=== PATIENT | female | born 1980 | race Hispanic/Latino ===

== ENCOUNTER 2019-04-22 03:03 | Emergency (ER) | payer OTHER ==
[2019-04-22] MEDS ORDERED: ALBUTEROL SULFATE 0.083% 2.5 MG/3 ML INH IH ONE (03:30)
== END 2019-04-22 04:59 | disposition home or self-care (01) ==
LOC: EDH 03:03
DX: J20.9 Acute bronchitis, unspecified (principal); F41.9 Anxiety disorder, unspecified; E11.9 Type 2 diabetes mellitus without complications; Z88.5 Allergy status to narcotic agent; Z90.710 Acquired absence of both cervix and uterus
CPT/HCPCS: 71046; 94640; 96372

== ENCOUNTER 2019-05-07 01:42 | Emergency (ER) | payer SELFPAY ==
[2019-05-07] MEDS ORDERED: ONDANSETRON HCL 4 MG/2 ML VIAL ONE (02:04)
[2019-05-07] MEDS ORDERED: HYDROCODONE/ACETAMINOPHEN 10/325 MG TAB ONE ×2 (02:05→02:16)
[2019-05-07] MEDS ORDERED: KETOROLAC TROMETHAMINE 30MG/ML ONE (02:05)
[2019-05-07] MEDS ORDERED: SODIUM CHLORIDE 0.9% 1000ML 1,000 ML IV ONE (02:06)
[2019-05-07 02:07] LABS: BASOPHILS % (AUTO) 0.9 % (0.0-5.0); EOSINOPHILS % (AUTO) 0.5 % (0.0-8.0); HEMATOCRIT 32.2 % (36-48); LYMPHOCYTES % (AUTO) 20.5 % (21.0-51.0); MEAN CORPUSCULAR HEMOGLOBIN 27.8 pg (27.0-33.0); MEAN CORPUSCULAR HGB CONC 33.3 g/dL (32.0-36.0); MEAN CORPUSCULAR VOLUME 83.5 fL (79-99); MONOCYTES % (AUTO) 5.5 % (3.0-13.0); NEUTROPHILS % (AUTO) 72.6 % (40.0-77.0); PLATELET COUNT (AUTO) 262 K/uL (130-400); RED BLOOD CELL COUNT(AUTO) 3.86 MIL/uL (4.00-5.50); RED CELL DISTRIBUTION WIDTH 17.2 % (11.0-15.5); WHITE BLOOD COUNT (AUTO) 8.5 K/uL (4.8-10.8)
[2019-05-07 02:27] LABS: CREATININE 0.8 mg/dL (0.5-1.5); POTASSIUM 3.1 mmol/L (3.5-5.1)
[2019-05-07 02:34] LABS: ALBUMIN 2.9 g/dL (3.5-5.0); BILIRUBIN,TOTAL 0.2 mg/dL (0.2-1.0); TOTAL PROTEIN, SERUM 6.8 g/dL (6.0-8.3)
== END 2019-05-07 03:26 | disposition home or self-care (01) ==
LOC: EDH 01:42
DX: K80.20 Calculus of gallbladder without cholecystitis without obstruction (principal); R11.2 Nausea with vomiting, unspecified; E11.9 Type 2 diabetes mellitus without complications; F41.9 Anxiety disorder, unspecified; Z88.6 Allergy status to analgesic agent
CPT/HCPCS: 36415; 76705; 80053; 83690; 85025; 96361; 96374; 96375; 99285; J1885; J2405; J7030

== ENCOUNTER 2020-07-10 22:37 | Emergency (ER) | payer OTHER ==
[2020-07-10] MEDS ORDERED: ONDANSETRON HCL 4 MG/2 ML VIAL ONE (22:57)
[2020-07-10] MEDS ORDERED: KETOROLAC TROMETHAMINE 30MG/ML ONE (22:57)
[2020-07-10] MEDS ORDERED: METOCLOPRAMIDE 10 MG/2 ML VIAL ONE (22:57)
[2020-07-10] MEDS ORDERED: PANTOPRAZOLE 40 MG/VIAL ONE (22:57)
[2020-07-10] MEDS ORDERED: FAMOTIDINE/PF 20 MG/2 ML VIAL IV ONE (22:58)
[2020-07-10 23:06] LABS: APPEARANCE,URINE Turbid (CLEAR); BILIRUBIN,URINE Negative (NEGATIVE); COLOR,URINE Yellow (YELLOW); GLUCOSE, URINE (UA) Negative (NEGATIVE); KETONES,URINE Negative (NEGATIVE); LEUKOCYTE ESTERASE ,URINE Moderate (NEGATIVE); NITRATE,URINE Negative (NEGATIVE); OCCULT BLOOD,URINE Negative (NEGATIVE); PROTEIN,URINE Negative (NEGATIVE)
[2020-07-10 23:19] LABS: BASOPHILS % (AUTO) 0.5 % (0.0-5.0); EOSINOPHILS % (AUTO) 0.3 % (0.0-8.0); HEMATOCRIT 35.1 % (36-48); LYMPHOCYTES % (AUTO) 31.3 % (21.0-51.0); MEAN CORPUSCULAR HEMOGLOBIN 26.7 pg (27.0-33.0); MEAN CORPUSCULAR HGB CONC 32.8 g/dL (32.0-36.0); MEAN CORPUSCULAR VOLUME 81.4 fL (79-99); MONOCYTES % (AUTO) 6.3 % (3.0-13.0); NEUTROPHILS % (AUTO) 61.2 % (40.0-77.0); PLATELET COUNT (AUTO) 320 K/uL (130-400); RED BLOOD CELL COUNT(AUTO) 4.31 MIL/uL (4.00-5.50); RED CELL DISTRIBUTION WIDTH 14.2 % (11.0-15.5); WHITE BLOOD COUNT (AUTO) 7.5 K/uL (4.8-10.8)
[2020-07-10 23:25] LABS: AMORPHOUS SEDIMENT,UR Many /LPF (None Seen); BACTERIA,URINE Few /HPF (None Seen); RBC,URINE 0-1 /HPF (0-1); SQUAMOUS EPITHELIAL CELL,UR Few /HPF (0-2)
[2020-07-10 23:32] LABS: CREATININE 0.9 mg/dL (0.5-1.5); POTASSIUM 3.3 mmol/L (3.5-5.1)
[2020-07-10 23:36] LABS: ALBUMIN 3.3 g/dL (3.5-5.0); BILIRUBIN,TOTAL 0.2 mg/dL (0.2-1.0)
[2020-07-11] MEDS ORDERED: DiphenhydrAMINE HCL 50 MG/ML VIAL ONE (00:16)
[2020-07-11] MEDS ORDERED: MAG HYDROX/AL HYDROX/SIMETH ES 30 ML SUSP UDCUP ONE (01:57)
[2020-07-11] MEDS ORDERED: LIDOCAINE HCL 2% VISCOUS 15 ML UDCUP ONE (01:57)
== END 2020-07-11 02:22 | disposition home or self-care (01) ==
LOC: EDH 22:37
DX: K80.20 Calculus of gallbladder without cholecystitis without obstruction (principal); E86.0 Dehydration; E11.9 Type 2 diabetes mellitus without complications; I10 Essential (primary) hypertension; Z88.6 Allergy status to analgesic agent; Z90.710 Acquired absence of both cervix and uterus
CPT/HCPCS: 36415; 76705; 80053; 81001; 83605; 83690; 84484; 85025; 87088; 93005; 96374; 96375 ×2; 99285; C9113; J1200; J1885; J2405; J2765; J3490

== ENCOUNTER 2020-12-07 21:25 | Emergency (ER) | payer OTHER ==
[2020-12-07] MEDS ORDERED: LIDOCAINE HCL 2% VISCOUS 15 ML UDCUP ONE (22:22)
[2020-12-07] MEDS ORDERED: MAG HYDROX/AL HYDROX/SIMETH ES 30 ML SUSP UDCUP ONE (22:22)
[2020-12-07] MEDS ORDERED: FAMOTIDINE 20MG TAB 20 MG TAB ONE (22:23)
[2020-12-07 22:25] LABS: BASOPHILS % (AUTO) 0.5 % (0.0-5.0); EOSINOPHILS % (AUTO) 0.6 % (0.0-8.0); HEMATOCRIT 35.2 % (36-48); LYMPHOCYTES % (AUTO) 25.4 % (21.0-51.0); MEAN CORPUSCULAR HEMOGLOBIN 26.5 pg (27.0-33.0); MEAN CORPUSCULAR HGB CONC 32.1 g/dL (32.0-36.0); MEAN CORPUSCULAR VOLUME 82.4 fL (79-99); MONOCYTES % (AUTO) 7.5 % (3.0-13.0); NEUTROPHILS % (AUTO) 65.6 % (40.0-77.0); PLATELET COUNT (AUTO) 334 K/uL (130-400); RED BLOOD CELL COUNT(AUTO) 4.27 MIL/uL (4.00-5.50); RED CELL DISTRIBUTION WIDTH 13.7 % (11.0-15.5); WHITE BLOOD COUNT (AUTO) 9.3 K/uL (4.8-10.8)
[2020-12-07 22:31] LABS: APPEARANCE,URINE Clear (CLEAR); BILIRUBIN,URINE Negative (NEGATIVE); COLOR,URINE Yellow (YELLOW); GLUCOSE, URINE (UA) Negative (NEGATIVE); KETONES,URINE Trace mg/dL (NEGATIVE); LEUKOCYTE ESTERASE ,URINE Moderate (NEGATIVE); NITRATE,URINE Negative (NEGATIVE); OCCULT BLOOD,URINE Negative (NEGATIVE); PH,URINE 6.5 (5.0-8.0); PROTEIN,URINE Negative (NEGATIVE)
[2020-12-07 22:32] LABS: HCG,QUAL RESULT NEGATIVE (NEGATIVE)
[2020-12-07 22:36] LABS: AMORPHOUS SEDIMENT,UR Rare /LPF (None Seen); BACTERIA,URINE Rare /HPF (None Seen); CALCIUM OXALATE CRYSTALS,UR Few /LPF (None Seen); RBC,URINE 0-1 /HPF (0-1); SQUAMOUS EPITHELIAL CELL,UR Rare /HPF (0-2)
[2020-12-07 22:39] LABS: BILIRUBIN,TOTAL 0.2 mg/dL (0.2-1.0); POTASSIUM 3.5 mmol/L (3.5-5.1)
[2020-12-07 23:05] LABS: ALBUMIN 3.1 g/dL (3.5-5.0); CREATININE 0.9 mg/dL (0.5-1.5)
[2020-12-07] MEDS ORDERED: KETOROLAC TROMETHAMINE 60 MG/2 ML VIAL ONE (23:12)
[2020-12-07] MEDS ORDERED: CEFTRIAXONE SODIUM 1 GM ONE (23:12)
[2020-12-07] MEDS ORDERED: LIDOCAINE HCL-MPF 1% 2ML VIAL ONE (23:13)
== END 2020-12-07 23:45 | disposition home or self-care (01) ==
LOC: EDH 21:25
DX: K29.00 Acute gastritis without bleeding (principal); E11.9 Type 2 diabetes mellitus without complications; F41.9 Anxiety disorder, unspecified; Z88.6 Allergy status to analgesic agent; Z79.84 Long term (current) use of oral hypoglycemic drugs
CPT/HCPCS: 36415; 71045; 80053; 81001; 81025; 83690; 84484; 85025; 87088; 93005; 96372 ×2; 99285; J0696; J1885; J3490

== ENCOUNTER 2021-09-21 00:43 | Emergency (ER) | payer OTHER ==
[~2021-09-21] VITALS: Ht 160 cm; Wt 80.7 kg
[~2021-09-21 00:43] MED LIST: DICY20TA2 PO; METO-296 PO; ONDA4TAB10 PO; PANT40TA PO
[2021-09-21 00:57] LABS: BASOPHILS % (AUTO) 0.5 % (0.0-5.0); EOSINOPHILS % (AUTO) 0.3 % (0.0-8.0); LYMPHOCYTES % (AUTO) 32.8 % (21.0-51.0); MEAN CORPUSCULAR HEMOGLOBIN 24.8 pg (27.0-33.0); MEAN CORPUSCULAR HGB CONC 30.6 g/dL (32.0-36.0); MONOCYTES % (AUTO) 6.5 % (3.0-13.0); NEUTROPHILS % (AUTO) 59.6 % (40.0-77.0); PLATELET COUNT (AUTO) 271 K/uL (130-400); RED CELL DISTRIBUTION WIDTH 15.2 % (11.0-15.5); WHITE BLOOD COUNT (AUTO) 6.3 K/uL (4.8-10.8)
[2021-09-21 01:07] LABS: POTASSIUM 3.7 mmol/L (3.5-5.1)
[2021-09-21 01:11] LABS: ALBUMIN 3.2 g/dL (3.5-5.0); BILIRUBIN,TOTAL 0.2 mg/dL (0.2-1.0); TOTAL PROTEIN, SERUM 6.9 g/dL (6.0-8.3)
[2021-09-21 01:35] LABS: APPEARANCE,URINE CLEAR (CLEAR); BILIRUBIN,URINE NEGATIVE (NEGATIVE); COLOR,URINE YELLOW (YELLOW); GLUCOSE, URINE (UA) NEGATIVE (NEGATIVE); KETONES,URINE NEGATIVE (NEGATIVE); LEUKOCYTE ESTERASE ,URINE SMALL (NEGATIVE); NITRATE,URINE NEGATIVE (NEGATIVE); OCCULT BLOOD,URINE NEGATIVE (NEGATIVE); PROTEIN,URINE NEGATIVE (NEGATIVE); UROBILINOGEN,URINE 0.2 mg/dL (0.2-1.0)
[2021-09-21 01:37] LABS: HCG,QUAL RESULT NEGATIVE (NEGATIVE)
[2021-09-21 01:55] LABS: BACTERIA,URINE Few /HPF (None Seen); RBC,URINE 0-1 /HPF (0-1)
[2021-09-21] MEDS ORDERED: KETOROLAC 30MG VIAL (30MG/ML) IV ONE (02:00)
[2021-09-21] MEDS ORDERED: HYOS-14 PO (03:20)
[2021-09-21] MEDS ORDERED: CIPR500S5 PO (03:20)
[2021-09-21] MEDS ORDERED: PROM25TA7 PO (03:20)
[2021-09-21] MEDS ORDERED: IBUP-2070 PO (03:20)
[2021-09-21] MEDS ORDERED: CIPROFLOXACIN HCL 500 MG TABLET PO SCH (03:30)
[2021-09-21] MEDS ORDERED: LEVOFLOXACIN 500 MG TABLET ONE (03:44)
[2021-09-21 03:47] VITALS: BP 110/77
== END 2021-09-21 03:54 | disposition home or self-care (01) ==
LOC: EDH 00:47
DX: N30.00 Acute cystitis without hematuria (principal); R03.0 Elevated blood-pressure reading, without diagnosis of hypertension; R10.11 Right upper quadrant pain; Z79.1 Long term (current) use of non-steroidal anti-inflammatories (NSAID); Z88.5 Allergy status to narcotic agent
CPT/HCPCS: 36415; 80053; 81001; 81025; 83690; 85025; 87088; 93005; 96374; 99284; J1885

== ENCOUNTER 2022-01-19 06:54 | Emergency (ER) | payer OTHER ==
[~2022-01-19] VITALS: Ht 160 cm; Wt 80.7 kg
[~2022-01-19 06:54] MED LIST changes: +CIPR500S5 PO; +HYOS-14 PO; +IBUP-2070 PO; +PROM25TA7 PO
[2022-01-19] MEDS ORDERED: ONDANSETRON 4MG INJ IVP ONE (07:30)
[2022-01-19] MEDS ORDERED: FAMOTIDINE 20MG VIAL IV ONE (07:30)
[2022-01-19 07:38] LABS: BASOPHILS % (AUTO) 0.4 % (0.0-5.0); EOSINOPHILS % (AUTO) 0.2 % (0.0-8.0); HEMATOCRIT 32.6 % (36-48); LYMPHOCYTES % (AUTO) 26.2 % (21.0-51.0); MEAN CORPUSCULAR HEMOGLOBIN 24.2 pg (27.0-33.0); MEAN CORPUSCULAR HGB CONC 30.7 g/dL (32.0-36.0); MEAN CORPUSCULAR VOLUME 78.9 fL (79-99); PLATELET COUNT (AUTO) 249 K/uL (130-400); RED BLOOD CELL COUNT(AUTO) 4.13 MIL/uL (4.00-5.50); WHITE BLOOD COUNT (AUTO) 5.1 K/uL (4.8-10.8)
[2022-01-19 07:45] LABS: CREATININE 0.7 mg/dL (0.5-1.5); POTASSIUM 3.7 mmol/L (3.5-5.1)
[2022-01-19 07:50] LABS: ALBUMIN 3.2 g/dL (3.5-5.0); BILIRUBIN,TOTAL 0.2 mg/dL (0.2-1.0); TOTAL PROTEIN, SERUM 6.9 g/dL (6.0-8.3)
[2022-01-19] MEDS ORDERED: KETOROLAC 30MG VIAL (30MG/ML) IVP ONE (08:00)
[2022-01-19] MEDS ORDERED: KETOROLAC 30MG VIAL (30MG/ML) ONE (08:03)
[2022-01-19 09:04] VITALS: BP 134/76
[2022-01-19 10:15] LABS: APPEARANCE,URINE CLEAR (CLEAR); BILIRUBIN,URINE NEGATIVE (NEGATIVE); COLOR,URINE YELLOW (YELLOW); GLUCOSE, URINE (UA) NEGATIVE (NEGATIVE); KETONES,URINE NEGATIVE (NEGATIVE); LEUKOCYTE ESTERASE ,URINE SMALL (NEGATIVE); NITRATE,URINE NEGATIVE (NEGATIVE); OCCULT BLOOD,URINE NEGATIVE (NEGATIVE); PH,URINE 6.5 (5.0-8.0); PROTEIN,URINE NEGATIVE (NEGATIVE); UROBILINOGEN,URINE 0.2 mg/dL (0.2-1.0)
[2022-01-19 10:19] LABS: HCG,QUAL RESULT NEGATIVE (NEGATIVE)
[2022-01-19 10:40] LABS: BACTERIA,URINE Few /HPF (None Seen); RBC,URINE 0-1 /HPF (0-1)
[2022-01-19] MEDS ORDERED: ONDA4TAB10 PO (12:13)
[2022-01-19] MEDS ORDERED: FAMO-136 PO (12:13)
[2022-01-19] MEDS ORDERED: DIPH25 PO (12:13)
== END 2022-01-19 12:27 | disposition home or self-care (01) ==
LOC: EDH 06:54
DX: R10.11 Right upper quadrant pain (principal); Z88.6 Allergy status to analgesic agent; Z88.5 Allergy status to narcotic agent; Z79.899 Other long term (current) drug therapy; Z98.890 Other specified postprocedural states
CPT/HCPCS: 36415; 80053; 81001; 81025; 83690; 85025; 96374; 96375; 99284; J1885; J2405; J3490

== ENCOUNTER 2022-07-20 00:13 | Emergency (ER) | payer OTHER ==
[~2022-07-20] VITALS: Ht 160 cm; Wt 83.5 kg
[~2022-07-20 00:13] MED LIST changes: +DIPH25 PO; +FAMO-136 PO
[2022-07-20] MEDS ORDERED: ONDANSETRON 4MG INJ IVP ONE (01:00)
[2022-07-20] MEDS ORDERED: HYDROMORPHONE 0.5 MG SYG (0.5MG/0.5ML) IVP ONE (01:00)
[2022-07-20] MEDS ORDERED: 0.9%NACL 1000ML 1,000 ML IV ONE (01:00)
[2022-07-20 01:12] LABS: BASOPHILS % (AUTO) 0.4 % (0.0-5.0); EOSINOPHILS % (AUTO) 0.7 % (0.0-8.0); HEMATOCRIT 34.4 % (36-48); LYMPHOCYTES % (AUTO) 16.3 % (21.0-51.0); MEAN CORPUSCULAR HEMOGLOBIN 26.1 pg (27.0-33.0); MEAN CORPUSCULAR HGB CONC 31.7 g/dL (32.0-36.0); MEAN CORPUSCULAR VOLUME 82.5 fL (79-99); MONOCYTES % (AUTO) 6.8 % (3.0-13.0); NEUTROPHILS % (AUTO) 75.5 % (40.0-77.0); PLATELET COUNT (AUTO) 340 K/uL (130-400); RED BLOOD CELL COUNT(AUTO) 4.17 MIL/uL (4.00-5.50); RED CELL DISTRIBUTION WIDTH 14.8 % (11.0-15.5); WHITE BLOOD COUNT (AUTO) 9.2 K/uL (4.8-10.8)
[2022-07-20 01:19] LABS: CREATININE 0.8 mg/dL (0.5-1.5); POTASSIUM 3.6 mmol/L (3.5-5.1)
[2022-07-20 01:24] LABS: ALBUMIN 3.2 g/dL (3.5-5.0); TOTAL PROTEIN, SERUM 6.9 g/dL (6.0-8.3)
[2022-07-20] MEDS ORDERED: ONDA-104 PO (02:16)
[2022-07-20] MEDS ORDERED: OMEP40CA21 PO (02:16)
[2022-07-20] MEDS ORDERED: IBUP-1493 PO (02:16)
[2022-07-20 02:25] VITALS: BP 127/84
== END 2022-07-20 02:26 | disposition home or self-care (01) ==
LOC: EDH 00:13
DX: K80.20 Calculus of gallbladder without cholecystitis without obstruction (principal); E11.9 Type 2 diabetes mellitus without complications; Z79.1 Long term (current) use of non-steroidal anti-inflammatories (NSAID); Z79.899 Other long term (current) drug therapy; Z88.5 Allergy status to narcotic agent
CPT/HCPCS: 99284; 96374; 76705; 96361; 96375; 84484; 80053; 85025; 36415; J7030; J2405; J1170

== ENCOUNTER 2022-10-05 19:47 | Emergency (ER) | payer OTHER ==
[~2022-10-05] VITALS: Ht 160 cm; Wt 78.6 kg
[~2022-10-05 19:47] MED LIST changes: -CIPR500S5 PO; -DICY20TA2 PO; -DIPH25 PO; -FAMO-136 PO; -HYOS-14 PO; +IBUP-1493 PO; -IBUP-2070 PO; -METO-296 PO; +OMEP40CA21 PO; +ONDA-104 PO; -ONDA4TAB10 PO; -PANT40TA PO; -PROM25TA7 PO
[2022-10-05 20:15] LABS: BASOPHILS % (AUTO) 0.7 % (0.0-5.0); EOSINOPHILS % (AUTO) 0.8 % (0.0-8.0); HEMATOCRIT 34.7 % (36-48); LYMPHOCYTES % (AUTO) 30.7 % (21.0-51.0); MEAN CORPUSCULAR HEMOGLOBIN 25.3 pg (27.0-33.0); MEAN CORPUSCULAR HGB CONC 31.4 g/dL (32.0-36.0); MEAN CORPUSCULAR VOLUME 80.5 fL (79-99); MONOCYTES % (AUTO) 9.5 % (3.0-13.0); PLATELET COUNT (AUTO) 311 K/uL (130-400); RED BLOOD CELL COUNT(AUTO) 4.31 MIL/uL (4.00-5.50); WHITE BLOOD COUNT (AUTO) 7.1 K/uL (4.8-10.8)
[2022-10-05 20:17] LABS: APPEARANCE,URINE CLEAR (CLEAR); BILIRUBIN,URINE NEGATIVE (NEGATIVE); COLOR,URINE LIGHT-YELLOW (YELLOW); GLUCOSE, URINE (UA) NEGATIVE (NEGATIVE); KETONES,URINE NEGATIVE (NEGATIVE); LEUKOCYTE ESTERASE ,URINE 75 Leu/uL (NEGATIVE); NITRATE,URINE NEGATIVE (NEGATIVE); OCCULT BLOOD,URINE NEGATIVE (NEGATIVE); PH,URINE 6.5 (5.0-8.0); PROTEIN,URINE NEGATIVE (NEGATIVE); UROBILINOGEN,URINE 0.2 mg/dL (0.2-1.0)
[2022-10-05 20:23] LABS: CREATININE 0.8 mg/dL (0.5-1.5); POTASSIUM 3.7 mmol/L (3.5-5.1)
[2022-10-05 20:23] LABS: HCG,QUALITATIVE URINE NEGATIVE (NEGATIVE)
[2022-10-05] MEDS ORDERED: DiphenhydrAMINE HCL 50 MG/ML VIAL ONE (20:25)
[2022-10-05] MEDS ORDERED: PROCHLORPERAZINE 10MG/2ML INJ ONE (20:25)
[2022-10-05] MEDS ORDERED: FAMOTIDINE 20MG VIAL IV ONE ×2 (20:25→20:30)
[2022-10-05 20:27] LABS: BACTERIA,URINE RARE /HPF (None Seen); MUCUS,URINE RARE LPF (None Seen); RBC,URINE 0-1 /HPF (0-1); SQUAMOUS EPITHELIAL CELL,UR MOD /HPF (0-2)
[2022-10-05 20:28] LABS: ALBUMIN 3.3 g/dL (3.5-5.0)
[2022-10-05] MEDS ORDERED: PROCHLORPERAZINE 10MG/2ML INJ IV ONE (20:30)
[2022-10-05] MEDS ORDERED: DiphenhydrAMINE HCL 50 MG/ML VIAL IV ONE (20:30)
[2022-10-05] MEDS ORDERED: 0.9%NACL 1000ML 1,000 ML IV ONE (20:30)
[2022-10-06 01:42] VITALS: BP 112/70
[2022-10-06] MEDS ORDERED: FAMO-136 PO (01:46)
[2022-10-06] MEDS ORDERED: PROC5TAB54 PO (01:46)
== END 2022-10-06 01:55 | disposition home or self-care (01) ==
LOC: EDH 19:47
DX: K80.50 Calculus of bile duct without cholangitis or cholecystitis without obstruction (principal); K29.70 Gastritis, unspecified, without bleeding; Z88.5 Allergy status to narcotic agent; Z79.899 Other long term (current) drug therapy; Z90.710 Acquired absence of both cervix and uterus
CPT/HCPCS: 99284; 96374; 96361; 96375; 80053; 83690; 85025; 87088; 81001; 81025; 36415; J1200; J3490; J7030; J0780 ×2

== ENCOUNTER 2022-10-27 02:00 | Emergency (ER) | payer OTHER ==
[~2022-10-27] VITALS: Ht 160 cm; Wt 75.3 kg
[~2022-10-27 02:00] MED LIST changes: +FAMO-136 PO; +PROC5TAB54 PO
[2022-10-27 02:26] LABS: BASOPHILS % (AUTO) 0.5 % (0.0-5.0); EOSINOPHILS % (AUTO) 0.8 % (0.0-8.0); HEMATOCRIT 34.3 % (36-48); LYMPHOCYTES % (AUTO) 32.5 % (21.0-51.0); MEAN CORPUSCULAR HEMOGLOBIN 24.7 pg (27.0-33.0); MEAN CORPUSCULAR HGB CONC 30.9 g/dL (32.0-36.0); MEAN CORPUSCULAR VOLUME 79.8 fL (79-99); MONOCYTES % (AUTO) 9.7 % (3.0-13.0); NEUTROPHILS % (AUTO) 56.2 % (40.0-77.0); PLATELET COUNT (AUTO) 365 K/uL (130-400); RED CELL DISTRIBUTION WIDTH 14.7 % (11.0-15.5); WHITE BLOOD COUNT (AUTO) 6.1 K/uL (4.8-10.8)
[2022-10-27 02:35] LABS: CREATININE 0.9 mg/dL (0.5-1.5); POTASSIUM 3.7 mmol/L (3.5-5.1)
[2022-10-27 02:40] LABS: ALBUMIN 3.1 g/dL (3.5-5.0); TOTAL PROTEIN, SERUM 6.7 g/dL (6.0-8.3)
[2022-10-27] MEDS ORDERED: KETOROLAC 30MG VIAL (30MG/ML) IVP ONE (03:00)
[2022-10-27 04:58] LABS: BILIRUBIN,URINE NEGATIVE (NEGATIVE); COLOR,URINE LIGHT-YELLOW (YELLOW); GLUCOSE, URINE (UA) NEGATIVE (NEGATIVE); KETONES,URINE NEGATIVE (NEGATIVE); LEUKOCYTE ESTERASE ,URINE NEGATIVE Leu/uL (NEGATIVE); NITRATE,URINE NEGATIVE (NEGATIVE); OCCULT BLOOD,URINE NEGATIVE (NEGATIVE); PROTEIN,URINE NEGATIVE (NEGATIVE); UROBILINOGEN,URINE 0.2 mg/dL (0.2-1.0)
[2022-10-27 04:59] LABS: APPEARANCE,URINE CLEAR (CLEAR); HCG,QUALITATIVE URINE NEGATIVE (NEGATIVE)
[2022-10-27] MEDS ORDERED: SOLU-MEDROL 125MG VIAL IVP ONE (05:00)
[2022-10-27] MEDS ORDERED: METH4TAB3 PO (06:09)
[2022-10-27 06:27] VITALS: BP 126/79
== END 2022-10-27 06:30 | disposition home or self-care (01) ==
LOC: EDH 02:00
DX: K80.20 Calculus of gallbladder without cholecystitis without obstruction (principal); M79.10 Myalgia, unspecified site; Z79.899 Other long term (current) drug therapy; Z79.1 Long term (current) use of non-steroidal anti-inflammatories (NSAID); Z88.5 Allergy status to narcotic agent; Z88.8 Allergy status to other drugs, medicaments and biological substances
CPT/HCPCS: 99285; 74176; 96374; 96375; 80053; 83690; 85025; 81003; 81025; 36415; J2930; J1885

== ENCOUNTER 2023-02-22 20:27 | Inpatient (IN) | payer OTHER ==
[~2023-02-22] VITALS: Ht 243.8 cm; Wt 73.9 kg
[~2023-02-22 20:27] MED LIST changes: +METH4TAB3 PO
[2023-02-22] MEDS ORDERED: HYDROMORPHONE 0.5 MG SYG (0.5MG/0.5ML) IVP ONE (21:00)
[2023-02-22] MEDS ORDERED: KETOROLAC 30MG VIAL (30MG/ML) IVP ONE (21:00)
[2023-02-22] MEDS ORDERED: LACTATED RINGERS 1000ML 1,000 ML IV ONE (21:00)
[2023-02-22] MEDS ORDERED: ONDANSETRON 4MG INJ IVP ONE (21:00)
[2023-02-22 21:14] LABS: BASOPHILS % (AUTO) 0.4 % (0.0-5.0); EOSINOPHILS % (AUTO) 0.6 % (0.0-8.0); HEMATOCRIT 33.5 % (36-48); LYMPHOCYTES % (AUTO) 34.8 % (21.0-51.0); MEAN CORPUSCULAR HEMOGLOBIN 25.4 pg (27.0-33.0); MEAN CORPUSCULAR HGB CONC 30.7 g/dL (32.0-36.0); MEAN CORPUSCULAR VOLUME 82.7 fL (79-99); MONOCYTES % (AUTO) 10.3 % (3.0-13.0); NEUTROPHILS % (AUTO) 53.5 % (40.0-77.0); PLATELET COUNT (AUTO) 377 K/uL (130-400); RED BLOOD CELL COUNT(AUTO) 4.05 MIL/uL (4.00-5.50); RED CELL DISTRIBUTION WIDTH 14.6 % (11.0-15.5)
[2023-02-22 21:24] LABS: CREATININE 0.8 mg/dL (0.5-1.5); POTASSIUM 3.8 mmol/L (3.5-5.1)
[2023-02-22 21:27] LABS: APPEARANCE,URINE TURBID (CLEAR); BILIRUBIN,URINE NEGATIVE (NEGATIVE); COLOR,URINE YELLOW (YELLOW); GLUCOSE, URINE (UA) NEGATIVE (NEGATIVE); KETONES,URINE NEGATIVE (NEGATIVE); LEUKOCYTE ESTERASE ,URINE NEGATIVE Leu/uL (NEGATIVE); NITRATE,URINE NEGATIVE (NEGATIVE); OCCULT BLOOD,URINE NEGATIVE (NEGATIVE); PROTEIN,URINE NEGATIVE (NEGATIVE); UROBILINOGEN,URINE 0.2 mg/dL (0.2-1.0)
[2023-02-22 21:28] VITALS: O2SAT 100
[2023-02-22] MEDS ORDERED: ACETAMINOPHEN 325 MG TAB PO PRN ×2 (21:30)
[2023-02-22] MEDS ORDERED: ONDANSETRON 4MG INJ IV PRN (21:30)
[2023-02-22] MEDS ORDERED: HYDROMORPHONE 0.5 MG SYG (0.5MG/0.5ML) IVP PRN (21:30)
[2023-02-22 21:32] LABS: BACTERIA,URINE FEW /HPF (None Seen); SQUAMOUS EPITHELIAL CELL,UR FEW /HPF (0-2); YEAST,URINE BUDDING MOD /HPF (None Seen)
[2023-02-22 21:33] LABS: ALBUMIN 3.1 g/dL (3.5-5.0)
[2023-02-22] MEDS: LACTATED RINGERS 1000ML 1,000 ML IV SCH (21:55)
[2023-02-22 22:45] VITALS: BP 127/78; PULSE 74; RESP 25
[2023-02-22] MEDS ORDERED: PARO-37 PO (23:26)
[2023-02-23 03:20] VITALS: BP 108/56; PULSE 60; RESP 16
[2023-02-23 05:37] LABS: CREATININE 0.7 mg/dL (0.5-1.5); MAGNESIUM 1.7 mg/dL (1.80-2.40); PHOSPHORUS 3.6 mg/dL (2.5-4.9)
[2023-02-23 05:39] LABS: INR 0.93 (0.85-1.15); PROTHROMBIN TIME 10.3 SEC (9.6-11.6)
[2023-02-23 05:41] LABS: PARTIAL THROMBOPLASTIN TIME 25.4 SEC (26.3-35.5)
[2023-02-23 05:51] LABS: BASOPHILS % (AUTO) 0.4 % (0.0-5.0); EOSINOPHILS % (AUTO) 0.7 % (0.0-8.0); LYMPHOCYTES % (AUTO) 43.9 % (21.0-51.0); MEAN CORPUSCULAR VOLUME 83.3 fL (79-99); MONOCYTES % (AUTO) 10.7 % (3.0-13.0); NEUTROPHILS % (AUTO) 44.1 % (40.0-77.0); PLATELET COUNT (AUTO) 320 K/uL (130-400); RED CELL DISTRIBUTION WIDTH 14.9 % (11.0-15.5); WHITE BLOOD COUNT (AUTO) 4.6 K/uL (4.8-10.8)
[2023-02-23 08:00] VITALS: BP 113/74; PULSE 64; RESP 18
[2023-02-23] MEDS ORDERED: ENOXAPARIN SODIUM 40 MG/0.4 ML SYRINGE SQ SCH (09:00)
[2023-02-23] MEDS ORDERED: FAMOTIDINE 20MG VIAL IV SCH (09:00)
[2023-02-23] MEDS ORDERED: ZOSYN 3.375GM +NS 50ML IVPB SCH (09:30)
[2023-02-23] MEDS ORDERED: 0.9%NACL 50ML IV SCH (09:30)
[2023-02-23 12:00] VITALS: BP 115/69; PULSE 72; RESP 20
[2023-02-23] MEDS: LACTATED RINGERS 1000ML 1,000 ML IV SCH (12:14)
[2023-02-23] MEDS ORDERED: MAGNESIUM 2GM PREMIX 50ML 50 ML IV PRN (13:00)
== END 2023-02-23 17:15 | disposition home or self-care (01) | DRG 446 ==
LOC: EDH 20:27 → EDHIP 20:28 → UNDOADMIN 21:26 → EDHIP 22:39 → 3DH 22:39
PROVIDERS: ADMIT Internal Medicine; ATTEND Internal Medicine
DX: K80.20 Calculus of gallbladder without cholecystitis without obstruction (principal); F14.90 Cocaine use, unspecified, uncomplicated; Z20.822 Contact with and (suspected) exposure to COVID-19; F41.9 Anxiety disorder, unspecified; Z87.11 Personal history of peptic ulcer disease
CPT/HCPCS: 36415; 76705; 78226; 80048; 80053; 81001; 82150; 83690; 83735; 84100; 84484; 85025; 85610; 85730; 86850; 86900; 86901; 87040; 87088; 87635; 93005; A9537; G0378; J1170; J1650; J1885; J2405; J2543; J3490; J7120

== ENCOUNTER 2023-06-11 11:56 | Emergency (ER) | payer OTHER ==
[~2023-06-11] VITALS: Ht 162.6 cm; Wt 78.9 kg
[~2023-06-11 11:56] MED LIST changes: -FAMO-136 PO; -IBUP-1493 PO; -METH4TAB3 PO; -OMEP40CA21 PO; -ONDA-104 PO; +PARO-37 PO; -PROC5TAB54 PO
[2023-06-11 12:48] LABS: BASOPHILS # (AUTO) 0.03 K/uL (0.00-0.20); BASOPHILS % (AUTO) 0.6 % (0.0-5.0); EOSINOPHILS # (AUTO) 0.02 K/uL (0.00-0.70); EOSINOPHILS % (AUTO) 0.4 % (0.0-8.0); HEMATOCRIT 33.6 % (36-48); IMMATURE GRANULOCYTE ABSOLUTE 0.01 K/uL (0-1); LYMPHOCYTES # (AUTO) 1.3 K/uL (1.0-4.8); LYMPHOCYTES % (AUTO) 24.4 % (21.0-51.0); MEAN CORPUSCULAR HEMOGLOBIN 24.1 pg (27.0-33.0); MEAN CORPUSCULAR HGB CONC 30.7 g/dL (32.0-36.0); MEAN CORPUSCULAR VOLUME 78.7 fL (79-99); MONOCYTES # (AUTO) 0.5 K/uL (0.1-1.0); NEUTROPHILS # (AUTO) 3.5 K/uL (1.8-7.7); NEUTROPHILS % (AUTO) 65.4 % (40.0-77.0); PLATELET COUNT (AUTO) 337 K/uL (130-400); RED BLOOD CELL COUNT(AUTO) 4.27 MIL/uL (4.00-5.50); RED CELL DISTRIBUTION WIDTH 16.2 % (11.0-15.5); WHITE BLOOD COUNT (AUTO) 5.3 K/uL (4.8-10.8)
[2023-06-11 12:58] LABS: CREATININE 0.8 mg/dL (0.5-1.5); POTASSIUM 3.7 mmol/L (3.5-5.1)
[2023-06-11 13:03] LABS: ALBUMIN 3.3 g/dL (3.5-5.0); BILIRUBIN,TOTAL 0.2 mg/dL (0.2-1.0); TOTAL PROTEIN, SERUM 7.3 g/dL (6.0-8.3)
[2023-06-11] MEDS ORDERED: 0.9%NACL 1000ML 1,000 ML IV ONE (13:30)
[2023-06-11] MEDS ORDERED: ONDANSETRON 4MG INJ IVP ONE (13:30)
[2023-06-11] MEDS ORDERED: KETOROLAC 30MG VIAL (30MG/ML) IVP ONE (13:30)
[2023-06-11 13:46] LABS: APPEARANCE,URINE CLEAR (CLEAR); BILIRUBIN,URINE NEGATIVE (NEGATIVE); COLOR,URINE COLORLESS (YELLOW); GLUCOSE, URINE (UA) NEGATIVE (NEGATIVE); KETONES,URINE NEGATIVE (NEGATIVE); LEUKOCYTE ESTERASE ,URINE NEGATIVE Leu/uL (NEGATIVE); NITRATE,URINE NEGATIVE (NEGATIVE); OCCULT BLOOD,URINE LARGE (NEGATIVE); PROTEIN,URINE NEGATIVE (NEGATIVE); UROBILINOGEN,URINE 0.2 mg/dL (0.2-1.0)
[2023-06-11 13:51] LABS: AMPHET/METH SCREEN,URINE NEGATIVE (NEGATIVE); BARBITURATE SCREEN, URINE NEGATIVE (NEGATIVE); BENZODIAZEPINES SCREEN,URINE NEGATIVE (NEGATIVE); CANNABINOID SCREEN,URINE NEGATIVE (NEGATIVE); COCAINE SCREEN,URINE POSITIVE (NEGATIVE); OPIATE SCREEN,URINE NEGATIVE (NEGATIVE); PHENCYCLIDINE SCREEN,URINE NEGATIVE (NEGATIVE)
[2023-06-11 14:13] LABS: ADD UA MICROSCOPIC YES
[2023-06-11 14:15] LABS: RBC,URINE TNTC /HPF (0-1)
[2023-06-11] MEDS ORDERED: MORPHINE 4 MG SYG IVP ONE (14:30)
[2023-06-11] MEDS ORDERED: KETO10TA2 PO (15:38)
[2023-06-11 15:55] VITALS: BP 153/93; PULSE 65; RESP 17; O2SAT 100
[2023-06-12] MEDS ORDERED: CEPH500B PO (05:20)
== END 2023-06-11 15:56 | disposition home or self-care (01) ==
LOC: EDH 11:56
DX: K80.20 Calculus of gallbladder without cholecystitis without obstruction (principal); K80.50 Calculus of bile duct without cholangitis or cholecystitis without obstruction; F41.9 Anxiety disorder, unspecified; Z98.890 Other specified postprocedural states; Z88.5 Allergy status to narcotic agent; Z88.8 Allergy status to other drugs, medicaments and biological substances
CPT/HCPCS: 99285; 96374; 76705; 96375; 96361; 84484; 80053; 80305; 85025; 87088; 36415; 81001; J7030; J2405; J2270; J1885

== ENCOUNTER 2023-06-12 02:49 | Emergency (ER) | payer OTHER ==
[~2023-06-12] VITALS: Ht 160 cm; Wt 77.1 kg
[~2023-06-12 02:49] MED LIST changes: +KETO10TA2 PO
[2023-06-12] MEDS ORDERED: LACTATED RINGERS 1000ML 1,000 ML IV ONE (03:00)
[2023-06-12] MEDS ORDERED: LIDOCAINE HCL 2% VISCOUS 15 ML UDCUP PO ONE (03:00)
[2023-06-12] MEDS ORDERED: FAMOTIDINE 20MG VIAL IV ONE (03:00)
[2023-06-12] MEDS ORDERED: MAG/ALUM/SIMETH 30 ML UDCUP PO ONE (03:00)
[2023-06-12] MEDS ORDERED: METOCLOPRAMIDE 10 MG/2 ML VIAL IVP ONE (03:00)
[2023-06-12] MEDS ORDERED: DICYCLOMINE HCL 10 MG/5 ML ML PO ONE (03:00)
[2023-06-12] MEDS ORDERED: PROMETHAZINE HCL 25 MG/ML 1ML AMPULE IM ONE (03:30)
[2023-06-12 03:38] LABS: BASOPHILS # (AUTO) 0.03 K/uL (0.00-0.20); BASOPHILS % (AUTO) 0.4 % (0.0-5.0); EOSINOPHILS # (AUTO) 0.03 K/uL (0.00-0.70); EOSINOPHILS % (AUTO) 0.4 % (0.0-8.0); HEMATOCRIT 37.8 % (36-48); IMMATURE GRANULOCYTE ABSOLUTE 0.01 K/uL (0-1); LYMPHOCYTES # (AUTO) 1.6 K/uL (1.0-4.8); LYMPHOCYTES % (AUTO) 22.3 % (21.0-51.0); MEAN CORPUSCULAR HEMOGLOBIN 24.1 pg (27.0-33.0); MEAN CORPUSCULAR HGB CONC 30.2 g/dL (32.0-36.0); MEAN CORPUSCULAR VOLUME 79.7 fL (79-99); MONOCYTES # (AUTO) 0.4 K/uL (0.1-1.0); MONOCYTES % (AUTO) 5.5 % (3.0-13.0); NEUTROPHILS # (AUTO) 5.2 K/uL (1.8-7.7); NEUTROPHILS % (AUTO) 71.3 % (40.0-77.0); PLATELET COUNT (AUTO) 337 K/uL (130-400); RED BLOOD CELL COUNT(AUTO) 4.74 MIL/uL (4.00-5.50); RED CELL DISTRIBUTION WIDTH 16.1 % (11.0-15.5); WHITE BLOOD COUNT (AUTO) 7.3 K/uL (4.8-10.8)
[2023-06-12 03:39] VITALS: BP 140/87; PULSE 79; RESP 19; O2SAT 99
[2023-06-12 03:47] LABS: CREATININE 0.9 mg/dL (0.5-1.5)
[2023-06-12 03:58] LABS: ALBUMIN 3.5 g/dL (3.5-5.0); BILIRUBIN,TOTAL 0.2 mg/dL (0.2-1.0); TOTAL PROTEIN, SERUM 7.7 g/dL (6.0-8.3)
[2023-06-12 04:25] LABS: APPEARANCE,URINE CLEAR (CLEAR); BILIRUBIN,URINE NEGATIVE (NEGATIVE); GLUCOSE, URINE (UA) NEGATIVE (NEGATIVE); KETONES,URINE NEGATIVE (NEGATIVE); LEUKOCYTE ESTERASE ,URINE 25 Leu/uL (NEGATIVE); NITRATE,URINE NEGATIVE (NEGATIVE); OCCULT BLOOD,URINE LARGE (NEGATIVE); PH,URINE 6.5 (5.0-8.0); PROTEIN,URINE NEGATIVE (NEGATIVE); UROBILINOGEN,URINE 0.2 mg/dL (0.2-1.0)
[2023-06-12 04:28] LABS: ADD UA MICROSCOPIC YES; COLOR,URINE RED (YELLOW)
[2023-06-12] MEDS ORDERED: KETAMINE 50MG/ML SYRINGE 50 MG/ML DISP.SYRIN IV ONE (04:30)
[2023-06-12 04:33] LABS: AMPHET/METH SCREEN,URINE NEGATIVE (NEGATIVE); BARBITURATE SCREEN, URINE NEGATIVE (NEGATIVE); BENZODIAZEPINES SCREEN,URINE NEGATIVE (NEGATIVE); CANNABINOID SCREEN,URINE NEGATIVE (NEGATIVE); COCAINE SCREEN,URINE POSITIVE (NEGATIVE); OPIATE SCREEN,URINE NEGATIVE (NEGATIVE); PHENCYCLIDINE SCREEN,URINE NEGATIVE (NEGATIVE)
[2023-06-12 04:43] LABS: RBC,URINE TNTC /HPF (0-1)
[2023-06-12] MEDS ORDERED: CEPH500B PO (05:20)
[2023-06-12] MEDS ORDERED: CEFTRIAXONE 2GM VIAL IVPB ONE (05:30)
[2023-06-12] MEDS ORDERED: LORAZEPAM 2 MG/ML 1 ML VIAL IVP ONE (05:30)
== END 2023-06-12 06:11 | disposition home or self-care (01) ==
LOC: EDH 02:49
DX: K80.50 Calculus of bile duct without cholangitis or cholecystitis without obstruction (principal); N39.0 Urinary tract infection, site not specified; F14.90 Cocaine use, unspecified, uncomplicated; F41.9 Anxiety disorder, unspecified; Z79.899 Other long term (current) drug therapy; Z98.890 Other specified postprocedural states
CPT/HCPCS: 99284; 96374; 96375; 84484; 80053; 80305; 84702; 83690; 85025; 36415; 93005; 96372; 81001; J7120; J3490 ×2; J2550; J0696; J2060; J2765